=== PATIENT | male | born 1980 | race American Indian/Alaskan Native ===

== ENCOUNTER 2020-10-03 00:54 | Emergency (ER) | payer SELFPAY ==
[2020-10-03 01:33] VITALS: BP 132/85
--- NOTE | 2020-10-03 01:46 | Emergency Department Report ---
ED General Adult HPI - General Chief complaint: Fall Stated complaint: FALL/BACK PAIN Time Seen by Provider: 10/03/20 01:38 Source: patient Mode of arrival: Ambulatory Limitations: No Limitations - History of Present Illness Initial comments: Patient is a 40-year-old male presents emergency room with points of a slip and fall that occurred last night. Patient states he believes he slipped over some water and fell onto his lower back. He states since then he has been having some left lower back pain. He denies any loss of consciousness, hitting his head, vomiting, vision changes, numbness, weakness, bowel or bladder incontinence, any other injury. He has a past medical history of bulging disc. No allergies to medications. - Related Data Previous Rx's Medication Instructions Recorded Last Taken Type Menthol/Camphor [[place] 1 applicatio TP BID #18 oint...g. 10/03/20 Unknown Rx Ointment] Naproxen [EC-Naprosyn] 500 mg PO BID PRN #14 tablet. 10/03/20 Unknown Rx methOCARBAMOL [Robaxin TAB] 500 mg PO BID PRN #14 tab 10/03/20 Unknown Rx Allergies Allergy/AdvReac Type Severity Reaction Status Date / Time No Known Allergies Allergy Unverified 10/03/20 01:27 ED Review of Systems ROS: Stated complaint: FALL/BACK PAIN Other details as noted in HPI Comment: All other systems reviewed and negative ED Past Medical Hx - Past Medical History Previous Medical History?: No - Surgical History Past Surgical History?: No - Social History Smoking Status: Never Smoker - Medications Home Medications: Home Medications Medication Instructions Recorded Confirmed Last Taken Type Menthol/Camphor [[place] 1 applicatio TP BID #18 oint...g. 10/03/20 Unknown Rx Ointment] Naproxen [EC-Naprosyn] 500 mg PO BID PRN #14 tablet. 10/03/20 Unknown Rx methOCARBAMOL [Robaxin TAB] 500 mg PO BID PRN #14 tab 10/03/20 Unknown Rx ED Physical Exam - General Limitations: No Limitations General appearance: alert, in no apparent distress - Head Head exam: Present: atraumatic, normocephalic - Eye Eye exam: Present: normal appearance - ENT ENT exam: Present: mucous membranes moist - Neck Neck exam: Present: normal inspection, full ROM. Absent: tenderness - Respiratory Respiratory exam: Present: normal lung sounds bilaterally. Absent: respiratory distress, wheezes, rales, rhonchi, stridor, chest wall tenderness, accessory muscle use, decreased breath sounds, prolonged expiratory - Cardiovascular Cardiovascular Exam: Present: regular rate, normal rhythm, normal heart sounds. Absent: systolic murmur, diastolic murmur, rubs, gallop - Back Exam Back exam: Present: normal inspection, full ROM, paraspinal tenderness (left lumbar paraspinal muscular ttp, no midline C-spine, T-spine or L-spine ttp, no step offs, no deformities). Absent: vertebral tenderness - Neurological Exam Neurological exam: Present: alert, oriented X3, CN II-XII intact, normal gait. Absent: motor sensory deficit - Psychiatric Psychiatric exam: Present: normal affect, normal mood - Skin Skin exam: Present: warm, dry, intact ED Course Vital Signs 10/03/20 01:29 Temperature 98.2 F Pulse Rate 67 Respiratory 20 Rate Blood Pressure 132/85 O2 Sat by Pulse 100 Oximetry ED Medical Decision Making - Radiology Data Radiology results: report reviewed, image reviewed Ordering Physician: JUSTIN KOTHARI Date of Service: 10/03/20 Procedure(s): XR spine lumbosacral 2-3V Accession Number(s): [id number] cc: JUSTIN KOTHARI Fluoro Time In Minutes: LUMBAR SPINE 3 VIEWS INDICATION: low back pain after slip and fall COMPARISON: None. FINDINGS: There is no fracture, subluxation, or other acute radiographic abnormality of the lumbar spine. Signer Name: Pancho Vela MD Signed: 10/03/2020 3:09 AM Workstation Name: [id number] Transcribed By: Dictated By: Pancho Vela MD Electronically Authenticated By: Pancho Vela MD Signed Date/Time: 10/03/20308 DD/ 7 TD/TT: Print - Medical Decision Making Patient is a 40-year-old male presents emergency room with points of a slip and fall that occurred last night. Patient states he believes he slipped over some water and fell onto his lower back. He states since then he has been having some left lower back pain. He denies any loss of consciousness, hitting his head, vomiting, vision changes, numbness, weakness, bowel or bladder incontinence, any other injury. He has a past medical history of bulging disc. No allergies to medications. Vitals are normal. On exam:left lumbar paraspinal muscular ttp, no midline C-spine, T-spine or L-spine ttp, no step offs, no deformities, no focal neuro deficits. X-ray lumbar spine: There is no fracture, subluxation, or other acute radiographic abnormality of the lumbar spine. Discussed all results with patient and answered questions. Patient be referred to orthopedic/spine doctor. Patient given prescription for naproxen, Robaxin, [place] balm ointment. Advised patient Please use medication as prescribed. Do not drive or operate machinery while taking muscle relaxer Robaxin. May use ice pack, heating pad, rest, Epsom salt bath. Follow-up with orthopedic or spine doctor. Return to emergency room for any new or worsening symptoms. Critical care attestation.: If time is entered above; I have spent that time in minutes in the direct care of this critically ill patient, excluding procedure time. ED Disposition Clinical Impression: Low back pain Qualifiers: Chronicity: acute Back pain laterality: left Sciatica presence: without sciatica Qualified Code(s): M54.5 - Low back pain Disposition: - TO HOME OR SELFCARE Is pt being admited?: No Does the pt Need Aspirin: No Condition: Stable Instructions: Lumbar Strain Additional Instructions: Please use medication as prescribed. Do not drive or operate machinery while taking muscle relaxer Robaxin. May use ice pack, heating pad, rest, Epsom salt bath. Follow-up with orthopedic or spine doctor. Return to emergency room for any new or worsening symptoms. Prescriptions: Naproxen [EC-Naprosyn] 500 mg PO BID PRN #14 tablet.dr PRN Reason: pain methOCARBAMOL [Robaxin TAB] 500 mg PO BID PRN #14 tab PRN Reason: pain Menthol/Camphor [[place] Ointment] 1 applicatio TP BID #18 oint...g. Referrals: [facility] [Provider Group] - 2-3 Days CARL PARRISH II, MD [Staff Physician] - 2-3 Days Forms: Work/School Release Form(ED) Time of Disposition: 03:15 Print Language: PORTUGUESE
--- NOTE | 2020-10-03 03:14 | XRay Report ---
LUMBAR SPINE 3 VIEWS INDICATION: low back pain after slip and fall COMPARISON: None. FINDINGS: There is no fracture, subluxation, or other acute radiographic abnormality of the lumbar spine. Signer Name: Pancho Vela MD Signed: 10/03/2020 3:09 AM Workstation Name: [id number]
== END 2020-10-03 03:20 | disposition home or self-care (01) ==
LOC: ED 00:54
DX: M54.5 Low back pain (principal); Z79.899 Other long term (current) drug therapy; W01.0XXA Fall on same level from slipping, tripping and stumbling without subsequent striking against object, initial encounter; Y93.89 Activity, other specified; Y92.89 Other specified places as the place of occurrence of the external cause; Y99.8 Other external cause status
CPT/HCPCS: 72100